=== PATIENT | male | born 1975 | race Two or more races ===

== ENCOUNTER 2017-11-08 14:07 | Outpatient (CLI) | payer OTHER | END 2017-11-08 14:14 | disposition home or self-care (01) | LOC: SONOGRAMA 14:07 → MAMO-SONO 14:15 | DX: M25.521 Pain in right elbow (principal) ==

== ENCOUNTER → 2019-02-28 | Outpatient (CLI) | payer OTHER | END | disposition home or self-care (01) | LOC: RAD 15:54 → SONOGRAMA 15:54 | DX: M53.3 Sacrococcygeal disorders, not elsewhere classified (principal) ==